=== PATIENT | male | born 1995 | race African-American/Black ===

== ENCOUNTER 2023-03-31 12:35 | Inpatient (IN) | payer OTHER ==
[~2023-03-31] VITALS: Ht 175.3 cm; Wt 91.8 kg
[2023-03-31] MEDS ORDERED: HOME MED LIST COMPLETE! XX SCH (13:05)
[2023-03-31 15:20] LABS: HEMATOCRIT 41.5 % (42.0-52.0); HEMOGLOBIN 13.2 g/dl (13.5-17.5); MEAN CORPUSCULAR HEMOGLOBIN 27.9 pg (27.0-33.0); MEAN CORPUSCULAR HGB CONC 31.8 g/dl (32.0-36.5); MEAN CORPUSCULAR VOLUME 87.7 fl (80.0-96.0); PLATELET COUNT, AUTOMATED 280 10^3/uL (150-450); RED BLOOD COUNT 4.73 10^6/uL (4.30-6.10); WHITE BLOOD COUNT 7.5 10^3/uL (4.0-10.0)
[2023-03-31 15:43] LABS: ACETAMINOPHEN LEVEL < 2.0 UG/ML (10.0-20.0); ETHYL ALCOHOL (ETHANOL) < 0.003 % (0.000-0.010)
[2023-03-31 15:45] LABS: ALKALINE PHOSPHATASE 75 U/L (46-116); ALT/SGPT 31 U/L (7.0-40); AST/SGOT 35 U/L (<34); BILIRUBIN,DIRECT 0.2 MG/DL (<0.4); BILIRUBIN,TOTAL 0.7 MG/DL (0.3-1.2); BLOOD UREA NITROGEN 20 MG/DL (9-23); CARBON DIOXIDE LEVEL 27 MMOL/L (20-31); CHLORIDE LEVEL 105 MMOL/L (98-107); CREATININE FOR GFR 0.94 MG/DL (0.70-1.30); GLOMERULAR FILTRATION RATE > 60.0 (>60); GLUCOSE, FASTING 121 MG/DL (60-100); POTASSIUM SERUM 3.9 MMOL/L (3.5-5.1); SALICYLATE LEVEL < 3.0 MG/DL (<30); SODIUM LEVEL 141 MMOL/L (136-145); TOTAL PROTEIN 7.7 G/DL (5.7-8.2)
[2023-03-31 15:46] LABS: THYROID STIMULATING HORMONE 0.346 uIU/ML (0.55-4.78)
[2023-03-31 17:26] LABS: AMPHETAMINES LEVEL URINE NEGATIVE (NEGATIVE); BARBITURATES URINE NEGATIVE (NEGATIVE); CANNABINOIDS URINE NEGATIVE (NEGATIVE); COCAINE METABOLITE URINE NEGATIVE (NEGATIVE); METHADONE URINE NEGATIVE (NEGATIVE); OPIATES URINE NEGATIVE (NEGATIVE); PHENCYCLIDINE URINE NEGATIVE (NEGATIVE)
[2023-03-31 17:27] LABS: BENZODIAZEPINES URINE NEGATIVE (NEGATIVE)
[2023-04-01] MEDS ORDERED: MOM 30ML SUSPENSION UDC PO PRN (13:25)
[2023-04-01] MEDS ORDERED: diphenhydrAMINE 25MG CAP PO PRN (13:25)
[2023-04-01] MEDS ORDERED: IBUPROFEN 400MG TAB PO PRN (13:25)
[2023-04-01] MEDS ORDERED: ACETAMINOPHEN TAB 650MG DOSE (2X325MG) PO PRN (13:25)
[2023-04-01] MEDS ORDERED: MAALOX 30 ML SUSP *UDC PO PRN (13:25)
[2023-04-01] MEDS ORDERED: traZODone 50 MG TAB PO PRN (13:25)
[2023-04-01 14:50] VITALS: BP 125/74; TEMP 98.3; O2SAT 97
[2023-04-02 06:19] VITALS: BP 129/60; TEMP 99; O2SAT 98
[2023-04-02 11:53] LABS: FREE T4 1.61 NG/DL (0.89-1.76)
[2023-04-02 16:21] VITALS: BP 138/82; TEMP 98.8; O2SAT 100
[2023-04-03 06:34] VITALS: BP 123/55; TEMP 99.5; O2SAT 100
[2023-04-03 16:19] VITALS: BP 138/69; TEMP 98.9; O2SAT 100
[2023-04-04 06:30] VITALS: BP 123/60; TEMP 98.4; O2SAT 97
[2023-04-04 16:17] VITALS: BP 124/60; TEMP 98.9; O2SAT 96
[2023-04-05 06:32] VITALS: BP 143/70; TEMP 99.1; O2SAT 96
[2023-04-05 09:49] VITALS: BP 143/70; TEMP 99.1; O2SAT 96
== END 2023-04-05 13:13 | disposition home or self-care (01) | DRG 881 ==
LOC: M ED 12:35 → M ED INP 04-01 13:23 → M PSY 04-01 14:59
PROVIDERS: ADMIT Student in an Organized Health Care Education/Training Program; ATTEND Student in an Organized Health Care Education/Training Program
DX: F43.21 Adjustment disorder with depressed mood (principal); R45.851 Suicidal ideations